=== PATIENT | female | born 1995 | race Caucasian/White ===

== ENCOUNTER → 2021-11-05 15:04 | Outpatient (CLI) | payer OTHER, SELFPAY ==
--- NOTE | 2021-11-05 | DI.ECHO.S_ITS ---
[facility] +---------+ : : [address] : [place] : : : : [id number] : : : : Phone: [phone]+ Echocardiogram Report + + :Name: RELL HILLMAN Study Date: 11/05/2021 Height: 63 in : :[facility] ReadingLocation: Weight: 275 lb : : Gender: Female BSA: 2.2 m2 : :: 1995 Age: 26 yrs BP: 142/98 mmHg: :Reason For Study: TACHYCARDIA : :Ordering Physician: JHONATAN, : :LETICIA Performed By: Erica Gomez : :Referring: LETICIA [place]RA[place] : + + Interpretation Summary The ejection fraction is estimated to be 60-65%. Diastolic parameters suggest probable normal left ventricular diastolic function and normal filling pressures. The right ventricle is normal in size and function. No significant valvular abnormalities. Unable to estimate PASP. Procedure: A two-dimensional transthoracic echocardiogram with color flow and Doppler was performed. The study quality was technically adequate. There is no prior echocardiogram noted for this patient. The patient was in sinus tachycardia with heart rates between 104-129 bpm during the exam. Left Ventricle: The left ventricle is normal in size and wall thickness. The ejection fraction is estimated to be 60-65%. Diastolic parameters suggest probable normal left ventricular diastolic function and normal filling pressures. Right Ventricle: The right ventricle is normal in size and function. Atria: The left atrial size is normal. Right atrial size is normal. There is no Doppler evidence for an interatrial shunt. Mitral Valve: The mitral valve is normal in structure and function. There is trace mitral regurgitation. Aortic Valve: The aortic valve opens well. There is no aortic valve stenosis. No aortic regurgitation is present. Tricuspid Valve: The tricuspid valve is normal in structure and function. There is trace tricuspid regurgitation. Pulmonary artery pressures cannot be estimated because of the lack of a measurable TR jet velocity. Pulmonic Valve: The pulmonic valve leaflets are thin and pliable; valve motion is normal. There is no pulmonic valvular regurgitation. Great Vessels: The aortic root is normal size. The ascending aorta could not be visualized. The IVC is of normal diameter and collapses greater than 50% with a sniff. This suggests a low right atrial pressure of 3 mm Hg. Pericardium/ Pleura There is no pericardial effusion. There is no pleural effusion. MMode/2D Measurements & Calculations LVIDd: 5.1 cm LVOT diam: 2.1 cm LVIDs: 3.3 cm Ao root diam: 3.0 cm FS: 34.8 % Ao Arch Diam (Prox Trans): 2.8 cm IVSd: 0.84 cm LVPWd: 1.0 cm LV link. diameter/BSA (cm/m^2): 2.3 LV sys. diameter/BSA (cm/m^2): 1.5 LA A2 area: 20.3 cm2 RA long axis: 5.1 cm LA A4 area: 16.1 cm2 RA area: 14.8 cm2 LA length (vol): 5.5 cm RA vol: 36.4 ml LA vol: 50.1 ml RA : 16.4 ml/m2 LA vol index: 22.6 ml/m2 IVC diam: 1.7 cm RVD1 (basal): 3.1 cm TAPSE: 1.8 cm Doppler Measurements & Calculations Ao V2 max: 144.1 cm/sec LVOT Max Nigel: 82.2 cm/sec Ao V2 mean: 100.6 cm/sec LV V1 max P.7 mmHg Ao max P.3 mmHg LV V1 VTI: 17.0 cm Ao mean P.5 mmHg MAU(I,D): 2.4 cm2 Ao V2 VTI: 24.1 cm MAU(V,D): 1.9 cm2 sev ratio: 0.70 MAU indexed to BSA (cm^2/m^2): 1.1 MV E max nigel: 95.7 cm/sec PA V2 max: 89.1 cm/sec MV A max nigel: 1.9 cm/sec PA V2 mean: 61.8 cm/sec MV E/A: 50.5 PA mean P.7 mmHg Med Peak E' Nigel: 14.0 cm/sec PA pr(Accel): 41.3 mmHg E/E' med: 6.8 Lat Peak E' Nigel: 14.0 cm/sec E/E' lat: 6.8 E/e' average: 6.8 MV dec time: 0.13 sec SV(LVOT): 57.9 ml Reading Physician:05:38 PM
--- NOTE | 2021-11-05 | DI.NM.S_ITS ---
PROCEDURE: NM EXERCISE TREADMILL NON NUC COMPARISON: None. INDICATIONS: Tachycardia, unspecified FINDINGS: Resting ECG sinus rhythm. Buster protocol 6:21, peak HR 181 bpm (93% peak predicted), maximum BP 180/80, 6.4 METS, BARRY +38%. Stress ECG sinus tachycardia, no ST segment changes, ectopy or arrhythmia. No complaints of exertion chest pain. IMPRESSION: No evidence of exercise-induced ischemia or arrhythmia. Reduced exercise capacity. Normal hemodynamic response to exercise. Dictated by: Maxine Pavon D.O. on 11/13/2021 at 15:43 Approved by: Maxine Pavon M.D. on 11/13/2021 at 15:46
--- NOTE | 2021-11-05 16:13 | PM.TREADMILL ---
Cardiac Stress Test Report Referral & Results Date Patient Seen: 11/05/21 Time Patient Seen: 16:13 Requesting provider: Vonnie Romero Indication: Tachycardia Rest ECG: Sinus tachycardia Procedure Note: Standard Buster protocol, 6:21, 6.4 METS Markedly reduce exercise capacity, BARRY +38% Normal hemodynamic response to exercise No chest pain or anginal symptoms No significant ST changes at peak exercise No ectopy Impression: Marli exercise stress test Please note: Actual ECG tracings can be found in the PACS system.
== END ==
PROVIDERS: Referring Provider Nurse Practitioner Acute Care; Visit Provider Nurse Practitioner Acute Care
DX: R00.0 Tachycardia, unspecified (principal)
CPT/HCPCS: 93017; 93306

== ENCOUNTER 2022-08-10 15:05 | Emergency (ER) | payer OTHER, SELFPAY ==
[2022-08-10 15:20] VITALS: BP 180/98; PULSE 114; RESP 20; TEMP 37.3; O2SAT 94; BMI 48.0
--- NOTE | 2022-08-10 15:23 | DI.RAD.S_ITS ---
PROCEDURE: XR CHEST 1V INDICATIONS: suspected sepsis TECHNIQUE: One view of the chest was acquired. COMPARISON: None. FINDINGS: Surgical changes and devices: None. Lungs and pleura: Left greater than right patchy airspace disease. No pleural effusions or pneumothorax. Mediastinum: Mediastinal contours appear normal. Heart size is normal. Bones and chest wall: No suspicious bony lesions. Overlying soft tissues appear unremarkable. IMPRESSION: Left greater than right patchy airspace disease, consistent with infection. Dictated by: Nick Leach M.D. on 08/10/2022 at 16:11 Approved by: Nick Leach M.D. on 08/10/2022 at 16:11
[2022-08-10 16:06] LABS: Add Manual Diff / Slide Review NO; Basophils Absolute Auto 200 /uL (0-100); Basophils Percent Auto 1.4 % (0-2); Eosinophils Absolute Auto 0 /uL (0-450); Hematocrit 35.8 % (36-46); Hemoglobin 11.4 g/dL (12.0-16.0); Lymphocytes Absolute Auto 700 /uL (1100-4500); Lymphocytes Percent Auto 5.1 % (25-40); Mean Corpuscular HGB Conc 31.8 % (30-36); Mean Corpuscular Hemoglobin 23.5 PG (26-34); Monocytes Absolute Auto 500 /uL (0-900); Monocytes Percent Auto 3.3 % (3-14); Neutrophils Absolute Auto 12900 /uL (1500-7000); Neutrophils Percent Auto 90.2 % (50-75); Platelet Count 206 X10^3/uL (150-400); Red Blood Cell Count 4.84 X10^6/uL (4.0-5.2); White Blood Cell Count 14.3 X10^3/uL (4.5-11.0)
[2022-08-10 16:13] LABS: Influenza A - CEPHEID Flu A POSITIVE (NEGATIVE); Influenza B - CEPHEID Flu B NEGATIVE (NEGATIVE); Respiratory Syncytial Virus Negative (Negative)
[2022-08-10 16:15] LABS: COVID-19 CEPHEID 4-PLEX PCR Negative (Negative)
[2022-08-10 16:17] LABS: Alanine Aminotransferase 67 IU/L (<35); Albumin 3.9 g/dL (3.5-5.0); Alkaline Phosphatase 67 U/L (38-126); Aspartate Aminotransferase 57 IU/L (14-36); BUN Creatinine Ratio 13.3 (6-22); Bilirubin Total 0.3 mg/dL (0.2-1.3); Blood Urea Nitrogen 8 mg/dL (7-17); Calcium 8.4 mg/dL (8.4-10.2); Carbon Dioxide 29 mmol/L (22-32); Chloride 100 mmol/L (98-107); Estimated Glomerular Filt Rate > 60 mL/min (>60); Globulin 3.8 g/dL (1.7-4.1); Glucose 128 mg/dL (70-100); HEMOLYSIS < 15 (0-50); Lactate (Lactic Acid) 1.5 mmol/L (0.7-2.1); Lipase 31 U/L (23-300); Potassium 3.7 mmol/L (3.4-5.1); Sodium 139 mmol/L (137-145); Total Protein 7.7 g/dL (6.3-8.2)
[2022-08-10 16:32] LABS: Procalcitonin 0.33 ng/mL (<0.5)
[2022-08-10 20:36] VITALS: PULSE 114; O2SAT 92
[2022-08-10 20:38] VITALS: BP 138/85; PULSE 111; O2SAT 93
--- NOTE | 2022-08-10 20:41 | ED_ITS ---
HPI - SOB/Dyspnea General Chief Complaint: Shortness of Breath/Dyspnea Stated Complaint: SOB/COUGH Time Seen by Provider: 08/10/22 20:41 Source: patient Mode of arrival: Ambulatory Limitations: no limitations History of Present Illness HPI Narrative: Jose Roberto Meza is a 26-year-old woman with no underlying health conditions who comes to the ER today with flu-like symptoms. Her symptoms have been present for 7 days. She was most ill this last Tuesday barely able to get up and walk around. Today she still feels quite ill. With fever nausea chills myalgias shortness of breath and left-sided chest pain. She had a flu test negative that was yesterday Related Data Previous Rx's Medication Instructions Recorded oseltamivir 75 mg capsule (Tamiflu) 75 mg PO BID 5 days #10 caps 08/10/22 Allergies Allergy/AdvReac Type Severity Reaction Status Date / Time No Known Drug Allergies Allergy Verified 08/10/22 15:20 Review of Systems Review of Systems Narrative: Complete review of systems is negative other than as noted above. Patient History Social History Smoking Status: Current every day smoker Smoking Status: Current every day smoker alcohol intake frequency: holidays/special occasions only Substance Use Type: does not use Exam Narrative Exam Narrative: GENERAL: Alert, cooperative and in no distress. HEAD: Atraumatic. Normocephalic. EYES: Sclera are clear without icterus. Extraocular movements are full. ENT: No rhinorrhea. Oropharynx is moist. Mouth exam is benign. NECK: Supple. Full range of motion. CARDIOVASCULAR: Tachycardia and rhythm without murmur gallop or rub. RESPIRATORY: Clear to auscultation. Breath sounds equal bilaterally. No wheezes, rales, or rhonchi. GASTROINTESTINAL: Abdomen soft, non-tender, nondistended. EXTREMITIES: No edema, full range of motion. No obvious trauma. BACK: Normal inspection, no CVA tenderness. NEURO: Nonfocal examination, normal speech, normal gait. SKIN: No rash or erythema of visible areas PSYCH: Normally oriented. Normal range of affect. Appropriate behavior Initial Vital Signs Initial Vital Signs: Vital Signs Temperature 99.1 F 08/10/22 15:20 Pulse Rate 114 H 08/10/22 15:20 Respiratory Rate 20 08/10/22 15:20 Blood Pressure 180/98 H 08/10/22 15:20 Pulse Oximetry 94 08/10/22 15:20 Oxygen Delivery Method 08/10/22 15:20 Course Orders Ordered: ED Orders 08/10/22 15:23 XR chest 1V Stat EKG-12 Lead Stat RT Consult Eval and Treat NOW 08/10/22 15:24 Covid-19 + FLU A/B + RSV - PCR Stat 08/10/22 15:50 Complete Blood Count AUTO DIFF Stat Comprehensive Metabolic Panel Stat Lactate (Lactic Acid) Stat Lipase Stat Procalcitonin Stat 08/10/22 16:15 Blood Culture Stat Discontinued Medications Sodium Chloride (Normal Saline 0.9%) 1,000 mls @ 1,000 mls/hr IV BOLUS ONE Stop: 08/10/22 16:22 Vital Signs Vital signs: Vital Signs - 8 hr 08/10/22 15:20 Temperature 99.1 F Pulse Rate 114 H Respiratory Rate 20 Blood Pressure 180/98 H Pulse Oximetry 94 Oxygen Delivery Method Room Air MDM - SOB/Dyspnea Lab Data Result diagrams: 08/10/22 15:50 08/10/22 15:50 Labs: Lab Results 08/10/22 08/10/22 08/10/22 Range/Units 15:24 15:50 15:50 WBC 14.3 H (4.5-11.0) X10^3/uL RBC 4.84 (4.0-5.2) X10^6/uL Hgb 11.4 L (12.0-16.0) g/dL Hct 35.8 L (36-46) % MCV 74.0 L (80-100) fL MCH 23.5 L (26-34) PG MCHC 31.8 (30-36) % RDW 16.0 H (11.6-14.8) % Plt Count 206 (150-400) X10^3/uL Neut % (Auto) 90.2 H (50-75) % Lymph % (Auto) 5.1 L (25-40) % [place] % (Auto) 3.3 (3-14) % Eos % (Auto) 0.0 L (2-4) % Baso % (Auto) 1.4 (0-2) % Neut # (Auto) 34805 H (4713-4484) /uL Lymph # (Auto) 700 L (5345-4858) /uL [place] # (Auto) 500 (0-900) /uL Eos # (Auto) 0 (0-450) /uL Baso # (Auto) 200 H (0-100) /uL Sodium 139 (137-145) mmol/L Potassium 3.7 (3.4-5.1) mmol/L Chloride 100 (98-107) mmol/L Carbon Dioxide 29 (22-32) mmol/L BUN 8 (7-17) mg/dL Creatinine 0.60 (0.52-1.04) mg/dL Estimated GFR > 60 (>60) mL/min BUN/Creatinine Ratio 13.3 (6-22) Glucose 128 H (70-100) mg/dL Lactate (0.7-2.1) mmol/L Calcium 8.4 (8.4-10.2) mg/dL Total Bilirubin 0.3 (0.2-1.3) mg/dL AST 57 H (14-36) IU/L ALT 67 H (<35) IU/L Alkaline Phosphatase 67 (38-126) U/L Total Protein 7.7 (6.3-8.2) g/dL Albumin 3.9 (3.5-5.0) g/dL Globulin 3.8 (1.7-4.1) g/dL Albumin/Globulin Ratio 1.0 (1.0-2.8) Lipase 31 (23-300) U/L Procalcitonin 0.33 (<0.5) ng/mL SARS-CoV-2 (PCR) Negative (Negative) Influenza A (RT-PCR) Flu a positive H (NEGATIVE) Influenza B (RT-PCR) Flu b negative (NEGATIVE) RSV (PCR) Negative (Negative) 08/10/22 Range/Units 15:50 WBC (4.5-11.0) X10^3/uL RBC (4.0-5.2) X10^6/uL Hgb (12.0-16.0) g/dL Hct (36-46) % MCV (80-100) fL MCH (26-34) PG MCHC (30-36) % RDW (11.6-14.8) % Plt Count (150-400) X10^3/uL Neut % (Auto) (50-75) % Lymph % (Auto) (25-40) % [place] % (Auto) (3-14) % Eos % (Auto) (2-4) % Baso % (Auto) (0-2) % Neut # (Auto) (1530-8902) /uL Lymph # (Auto) (1153-4443) /uL [place] # (Auto) (0-900) /uL Eos # (Auto) (0-450) /uL Baso # (Auto) (0-100) /uL Sodium (137-145) mmol/L Potassium (3.4-5.1) mmol/L Chloride (98-107) mmol/L Carbon Dioxide (22-32) mmol/L BUN (7-17) mg/dL Creatinine (0.52-1.04) mg/dL Estimated GFR (>60) mL/min BUN/Creatinine Ratio (6-22) Glucose (70-100) mg/dL Lactate 1.5 (0.7-2.1) mmol/L Calcium (8.4-10.2) mg/dL Total Bilirubin (0.2-1.3) mg/dL AST (14-36) IU/L ALT (<35) IU/L Alkaline Phosphatase (38-126) U/L Total Protein (6.3-8.2) g/dL Albumin (3.5-5.0) g/dL Globulin (1.7-4.1) g/dL Albumin/Globulin Ratio (1.0-2.8) Lipase (23-300) U/L Procalcitonin (<0.5) ng/mL SARS-CoV-2 (PCR) (Negative) Influenza A (RT-PCR) (NEGATIVE) Influenza B (RT-PCR) (NEGATIVE) RSV (PCR) (Negative) Imaging Data Chest x-ray: Radiologist's Impression: MPRESSION:? Left greater than right patchy airspace disease, consistent with infection. ? ? Dictated by: Nick Leach M.D. on 08/10/2022 at 16:11 ? ? Approved by: Nick Leach M.D. on 08/10/2022 at 16:11 ? [facility] Narrative Medical decision making narrative: Saturating well, not tachypneic. Taking p.o. fluids. Was quite dehydrated here but gave 2 L of saline with some modest improvement. Will prescribe Tamiflu. Flu is positive on culture. Chest x-ray consistent with influenza pneumonia. Outpatient management still reasonable given good oxygenation and tolerance of p.o.. Discharge Plan Departure Patient Disposition: Home Clinical Impression: Influenza A with pneumonia Activity Restrictions/Additional Instructions: UR quite sick with this influenza pneumonia. We can see the pneumonia on the chest x-ray but it is influenza and not likely a bacterial cause. No specific antibiotic should be helpful for this. I do recommend Tamiflu. I will send this to the [facility] pharmacy in [place]. For now I recommend copious oral hydration. Lots of extra rest. Follow-up in a few days if not significantly improved. Follow-up right away for worsening symptoms especially worsening shortness of breath. Prescriptions: New oseltamivir [Tamiflu] 75 mg capsule 75 mg PO BID 5 Days Qty: 10 0RF Referrals: Miscellaneous,Doctor, [Primary Care Provider] -
[2022-08-10] MEDS: SODIUM CHLORIDE 0.9% 1,000 ML 1000 ML IV (20:51)
[2022-08-10 21:00] VITALS: PULSE 104; O2SAT 93
[2022-08-10 21:01] VITALS: BP 164/75; PULSE 105; RESP 18; O2SAT 92
--- NOTE | 2022-08-10 21:30 | PC.NURSE ---
IV not infusing Dr Luther informed, if pt able to tolerated 500ml of fluid she may be dc, pt given ice water per her request
[2022-08-10 21:38] VITALS: O2SAT 81
--- NOTE | 2022-08-10 21:43 | PC.NURSE ---
pt tolerated fluid without any n/v, states she is ready to go home
== END 2022-08-10 21:45 | disposition home or self-care (01) ==
PROVIDERS: Emergency Medicine; Emergency Provider Family Medicine Addiction Medicine
DX: J09.X1 Influenza due to identified novel influenza A virus with pneumonia (principal); R07.9 Chest pain, unspecified; R50.9 Fever, unspecified; Z20.822 Contact with and (suspected) exposure to COVID-19
CPT/HCPCS: 0241U; 71045; 80053; 83605; 83690; 84145; 85025; 87040; 93005; 99283; 99284